=== PATIENT | female | born 1990 | race African-American/Black ===

== ENCOUNTER 2017-09-30 16:56 | Emergency (ER) | payer OTHER ==
[2017-09-30 17:17] VITALS: BP 134/75; PULSE 78; RESP 18; TEMP 98.7; O2SAT 100
--- NOTE | 2017-09-30 17:20 | PD ---
HPI Chief Complaint: Psychiatric Symptoms Time Seen by Provider: 17:11 Travel History International Travel<30 days: No Contact w/Intl Traveler<30days: No History of Present Illness HPI 27-year-old -C[place] female with history of seizure disorder presents the emergency department under the Gomez act for suicidal ideation. Patient reportedly told her girlfriend, and she was going to use a BB gun to have the police shoot her. Police were called, and the patient did in fact tried to pull a BB gun on them prior to them apprehending her. Patient states history of seizure disorder which is supposed to be treated with Dilantin, however she states she stopped the Dilantin months ago, and has not had a seizure for over 2 years. She denies any other medical problems currently. She is not a cooperative patient. She has no known drug allergies [facility] Social History Alcohol Use: Yes Tobacco Use: Yes Substance Use: Yes Allergies-Medications (Allergen,Severity, Reaction): Coded Allergies: No Known Allergies (Unverified , 09/30/17) Review of Systems ROS Limitations: Uncooperative, Poor Historian Except as stated in HPI: all other systems reviewed are Neg General / Constitutional: No: Fever Eyes: No: Visual changes HENT: No: Headaches Cardiovascular: No: Chest Pain or Discomfort Respiratory: No: Shortness of Breath Gastrointestinal: No: Abdominal Pain Genitourinary: No: Dysuria Musculoskeletal: No: Pain Skin: No Rash Neurologic: No: Weakness Psychiatric: No: Depression Endocrine: No: Polydipsia Hematologic/Lymphatic: No: Easy Bruising Physical Exam Exam Limitations: Poor Historian, Uncooperative Narrative GENERAL: Patient appears upset but medically stable. SKIN: Warm and dry. Normal color. Normal turgor. Patient has superficial abrasion to the chin and left shoulder. HEAD: Atraumatic. Normocephalic. Nontender. EYES: Pupils equal and round. No scleral icterus. No injection or drainage. ENT: No nasal bleeding or discharge. Mucous membranes pink and moist. Pharynx is clear. Airways patent. No dental injury. NECK: Trachea midline. No bony tenderness or step-off. Range of motion is full CARDIOVASCULAR: Regular rate and rhythm. RESPIRATORY: No accessory muscle use. Clear to auscultation. Breath sounds equal bilaterally. GASTROINTESTINAL: Abdomen soft, non-tender, nondistended. Hepatic and splenic margins not palpable. MUSCULOSKELETAL: Extremities without clubbing, cyanosis, or edema. No obvious deformities. NEUROLOGICAL: Awake and alert. No obvious cranial nerve deficits. Motor grossly within normal limits. Five out of 5 muscle strength in the arms and legs. Normal speech. Data Data Orders Orders Complete Blood Count With Diff (09/30/17 17:11) Comprehensive Metabolic Panel (09/30/17 17:11) Thyroid Stimulating Hormone (09/30/17 17:11) Urinalysis - C+S If Indicated (09/30/17 17:11) Ed Urine Pregnancytest Poc (09/30/17 17:11) Phenytoin (Dilantin) (09/30/17 17:11) Psych Screen (09/30/17 17:11) Drug Screen, Random Urine (09/30/17 17:11) Alcohol (Ethanol) (09/30/17 17:11) MDM Medical Decision Making Medical Screen Exam Complete: Yes Emergency Medical Condition: Yes Differential Diagnosis Gomez act. Suicidal ideation. Depression. Narrative Course Patient appears emotionally upset but medically stable. Psychiatric labs ordered including CBC, CMP, urinalysis, urine , and Dilantin level. Urine drug screen and alcohol levels ordered as well. Patient is medically clear for psychiatric evaluation. Condition: Stable Francis Srinivasan Sep 30, 2017 17:20
[2017-09-30 17:36] LABS: AUTOMATED NEUTROPHIL # 5.8 TH/MM3 (1.8-7.7); BASOPHIL # 0.1 TH/MM3 (0-0.2); BASOPHIL % 0.9 % (0.0-2.0); EOSINOPHIL # 0.1 TH/MM3 (0-0.4); EOSINOPHIL % 1.2 % (0.0-4.0); HEMATOCRIT 40.7 % (35.0-46.0); HEMOGLOBIN 13.5 GM/DL (11.6-15.3); LYMPH % 18.4 % (9.0-44.0); LYMPHOCYTE # 1.4 TH/MM3 (1.0-4.8); MEAN CELL VOLUME 92.2 FL (80.0-100.0); MEAN CORPUSCULAR HEMOGLOBIN 30.5 PG (27.0-34.0); MEAN CORPUSCULAR HGB CONC 33.1 % (32.0-36.0); MEAN PLATELET VOLUME 9.8 FL (7.0-11.0); MONO % 3.7 % (0.0-8.0); MONOCYTE # 0.3 TH/MM3 (0-0.9); NEUT % 75.8 % (16.0-70.0); PLATELET COUNT 230 TH/MM3 (150-450); RED BLOOD COUNT 4.42 MIL/MM3 (4.00-5.30); RED CELL DISTRIBUTION WIDTH 13.5 % (11.6-17.2); WHITE BLOOD COUNT 7.6 TH/MM3 (4.0-11.0)
[2017-09-30 17:50] LABS: ALBUMIN 4.3 GM/DL (3.4-5.0); ALT (GPT) 14 U/L (10-53); AST (GOT) 8 U/L (15-37); BICARBONATE 21.3 MEQ/L (21.0-32.0); BLOOD UREA NITROGEN 15 MG/DL (7-18); CALCIUM 8.7 MG/DL (8.5-10.1); CHLORIDE 107 MEQ/L (98-107); GLOMERULAR FILTRATION RATE 55 ML/MIN (>89); GLUCOSE,RANDOM 154 MG/DL (74-106); PHENYTOIN (DILANTIN) LESS THAN 0.4 MCG/ML (10.0-20.0); SODIUM (NA) 141 MEQ/L (136-145)
[2017-09-30 17:59] LABS: ALKALINE PHOSPHATASE 59 U/L (45-117); TOTAL BILIRUBIN ADULT 0.4 MG/DL (0.2-1.0); TOTAL PROTEIN 8.4 GM/DL (6.4-8.2)
[2017-09-30 18:29] VITALS: BP 134/75; PULSE 78; RESP 18; TEMP 98.7; O2SAT 100
[2017-09-30 21:52] LABS: BACTERIA, URINE RARE /hpf; BILIRUBIN, URINE NEG (NEG); BLOOD, URINE NEG (NEG); GLUCOSE,URINE NEG (NEG); HYALINE CAST, URINE 8 /lpf (RARE); KETONE, URINE NEG (NEG); MUCUS URINE FEW /lpf (OCC); NITRITE,URINE NEG (NEG); PH, URINE 5.5 (5.0-8.5); SQUAMOUS EPITHELIAL CELL URINE 6 /hpf (0-5); URINE COLOR LIGHT-YELLOW (YELLW/STRAW); URINE LEUKOCYTE ESTERASE NEG (NEG)
[2017-09-30 23:30] VITALS: BP 142/81; PULSE 88; RESP 16; TEMP 99; O2SAT 100
[2017-10-01 06:33] VITALS: BP 114/58; PULSE 96; RESP 18; TEMP 98.8; O2SAT 100
--- NOTE | 2017-10-01 10:45 | PD ---
History of Present Illness Chief Complaint: Psychiatric Symptoms Time Seen by Provider: 10:35 Travel History International Travel<30 Days: No Contact w/Intl Traveler<30days: No Known affected area: No Legal Status Legal Status: Gomez Act Gomez Act Signed By: Devi Espitia Gomez Act Comment: Officer [employer] #[id number] History of Present Illness: History of Present Illness HPI 27-year-old -Welsh, single female in a domestic partner relationship , with significant medical history of seizure disorder who presents the emergency department under the Gomez act initiated for suicidal ideation. The police were called by her . She reported to the police that the patient told her that she was going to use a BB gun to have the police shoot her. Police were called, and the patient did in fact tried to pull a BB gun on them prior to them apprehending her. Patient was monitored in secure environment and presented no suicidality and no behavioral concerns. Electronic medical is reviewed. No previous contact with [facility] psychiatry. Lab work revealed positive toxicology for cannabinoids. Some slight alteration in her AST and ALT. Patient is seen. Patient is alert, oriented, calm and mostly cooperative with the interview. She states " I'm decent and I am not in need of any help." Patient states that she was watching a television show with her partner and that they were arguing and and her called the police. She states that this has happened in the past and that she has been Gomez acted before for similar issues. The patient denies any hallucinations and does not appear to be internally stimulated. There is no evidence of any megan or hypomania. She does not present any significant clinical evidence of any depression. She states that she is not suicidal and not homicidal and "I have no interest in killing myself or anyone else". The patient reports that she needs to be discharged because she needs to get back to work. She denies any previous psychiatric history but does report she has received therapy in the past. Remainder of psychiatric review of systems is negative. Telephone call to Marisel at [phone]. She has no concerns for the patient' s safety. States that the patient is not a danger and that " the smash hand just took it too far". She will pick the patient up when she is discharged. PFSH Past Medical History Hx Anticoagulant Therapy: No Asthma: Yes Autoimmune Disease: No Cardiovascular Problems: No Chemotherapy: No Cerebrovascular Accident: No Diabetes: No Gastrointestinal Disorders: No Genitourinary: No Medical other: No Musculoskeletal: No Neurologic: Yes Psychiatric: No Reproductive: No Respiratory: Yes Integumentary: No Migraines: Yes Seizures: Yes Tetanus Vaccination: Unknown Influenza Vaccination: No ?: Not Past Surgical History Surgical History: No Previous Surgery Hysterectomy: No Psychiatric History Psychiatric History Hx Psychiatric Treatment: Pt denies any psych history or any previous visits. No previous history of suicide attempt. No history of self-injurious behavior. History of Inpatient Treatment: No Guns or firearms in home: No Social History Single, in domestic partner relationship. She is currently employed at a [employer] shop. Hx Alcohol Use: Yes Hx Tobacco Use: No Hx Substance Use: Yes Substance Use Type: Alcohol, Marijuana Hx of Substance Use Treatment: No Family Psychiatric History Negative Allergies-Medications (Allergen,Severity, Reaction): Coded Allergies: No Known Allergies (Unverified , 09/30/17) Reported Meds & Prescriptions Reported Meds & Active Scripts Active Active Prescriptions or Reported Medications Unobtainable Review of Systems Psychiatric: DENIES: Anxiety, Confusion, Mood changes, Depression, Hallucinations, Agitation, Suicidal Ideation, Homicidal Ideation, Delusions Except as stated in HPI: all other systems reviewed are Neg Mental Status Examination Appearance: Appropriate (Wearing hospital attire) Consciousness: Alert Orientation: x4 Motor Activity: Normal gait Speech: Unremarkable Language: Adequate Fund of Knowledge: Adequate Attention and Concentration: Adequate Memory: Unremarkable Mood: Appropriate Affect: Appropriate Thought Process & Associations: Intact, Logical, Goal directed Thought Content: Appropriate Hallucination Type: None Delusion Type: None Suicidal Ideation: No Suicidal Plan: No Suicidal Intention: No Homicidal Ideation: No Homicidal Plan: No Homicidal Intention: No Insight: Fair Judgment: Impulsive MDM Medical Decision Making Medical Record Reviewed: Yes Assessment/Plan History of Present Illness HPI 27-year-old -Welsh, single female in a domestic partner relationship , with significant medical history of seizure disorder, no psychiatric history who presents the emergency department under the Gomez act initiated for suicidal ideation. The police were called by her . She reported to the police that the patient told her that she was going to use a BB gun to have the police shoot her. Police were called, and the patient did in fact tried to pull a BB gun on them prior to them apprehending her. Patient was monitored in secure environment and presented no suicidality and no behavioral concerns. Patient is seen. Collateral is obtained. No evidence of unstable mental illness as defined under the Gomez act. Patient does not meet Gomez act criteria and therefore it will be lifted. Orders Orders Complete Blood Count With Diff (09/30/17 17:11) Comprehensive Metabolic Panel (09/30/17 17:11) Thyroid Stimulating Hormone (09/30/17 17:11) Urinalysis - C+S If Indicated (09/30/17 17:11) Ed Urine Pregnancytest Poc (09/30/17 17:11) Phenytoin (Dilantin) (09/30/17 17:11) Psych Screen (09/30/17 17:11) Drug Screen, Random Urine (09/30/17 17:11) Alcohol (Ethanol) (09/30/17 17:11) Diet Regular Basic (09/30/17 Dinner) Diet Regular Basic (10/01/17 Breakfast) Diet Regular Basic (10/01/17 Lunch) Results Vital Signs Date Time Temp Pulse Resp B/P (MAP) Pulse Ox O2 Delivery O2 Flow Rate FiO2 10/01/17 06:33 98.8 96 18 114/58 (76) 100 09/30/17 23:30 99.0 88 16 142/81 (101) 100 Room Air 09/30/17 18:29 98.7 78 18 134/75 (94) 100 09/30/17 17:17 98.7 78 18 134/75 (94) 100 Laboratory Tests Test 09/30/17 17:23 09/30/17 21:19 White Blood Count 7.6 Red Blood Count 4.42 Hemoglobin 13.5 Hematocrit 40.7 Mean Corpuscular Volume 92.2 Mean Corpuscular Hemoglobin 30.5 Mean Corpuscular Hemoglobin Concent 33.1 Red Cell Distribution Width 13.5 Platelet Count 230 Mean Platelet Volume 9.8 Neutrophils (%) (Auto) 75.8 Lymphocytes (%) (Auto) 18.4 Monocytes (%) (Auto) 3.7 Eosinophils (%) (Auto) 1.2 Basophils (%) (Auto) 0.9 Neutrophils # (Auto) 5.8 Lymphocytes # (Auto) 1.4 Monocytes # (Auto) 0.3 Eosinophils # (Auto) 0.1 Basophils # (Auto) 0.1 CBC Comment DIFF FINAL Differential Comment Blood Urea Nitrogen 15 Creatinine 1.40 Random Glucose 154 Total Protein 8.4 Albumin 4.3 Calcium Level 8.7 Alkaline Phosphatase 59 Aspartate Amino Transf (AST/SGOT) 8 Alanine Aminotransferase (ALT/SGPT) 14 Total Bilirubin 0.4 Sodium Level 141 Potassium Level 3.0 Chloride Level 107 Carbon Dioxide Level 21.3 Anion Gap 13 Estimat Glomerular Filtration Rate 55 Thyroid Stimulating Hormone 3rd Gen 0.896 Phenytoin (Dilantin) Level LESS THAN 0.4 Ethyl Alcohol Level LESS THAN 3 Urine Color LIGHT-YELLOW Urine Turbidity CLEAR Urine pH 5.5 Urine Specific [place] 1.007 Urine Protein TRACE Urine Glucose (UA) NEG Urine Ketones NEG Urine Occult Blood NEG Urine Nitrite NEG Urine Bilirubin NEG Urine Urobilinogen LESS THAN 2.0 Urine Leukocyte Esterase NEG Urine RBC 1 Urine WBC 3 Urine Squamous Epithelial Cells 6 Urine Bacteria RARE Urine Hyaline Casts 8 Urine Mucus FEW Microscopic Urinalysis Comment CULT NOT INDICATED Urine Opiates Screen NEG Urine Barbiturates Screen NEG Urine Amphetamines Screen NEG Urine Benzodiazepines Screen NEG Urine Cocaine Screen NEG Urine Cannabinoids Screen POS Diagnosis Primary Impression: Adjustment disorder Psychiatrically Cleared: Yes Med/ Other Pt Specific Info: No Meds Exist/No RX given Prescriptions Unable to Obtain Active Prescriptions or Reported Meds Disposition: 01 DISCHARGE HOME Condition: Stable Problem Qualifiers Primary Impression: Adjustment disorder Qualified Codes: F43.25 - Adjustment disorder with mixed disturbance of emotions and conduct Francie Ramos [facility] Oct 01, 2017 10:45
--- NOTE | 2017-10-01 11:00 | PD ---
Physical Exam Date Seen by Provider: Oct 01, 2017 Time Seen by Provider: 10:57 Narrative 27-year-old -Palest[place] female previously medically cleared under the Gomez act for psychiatric evaluation. Patient has been cleared psychiatrically for discharge. Patient remains medically stable for discharge at this time. Patient has history of seizures, but is refusing to take any medication for it at this time, as she has not had a seizure in many years. Follow-up will be based on psychiatric note. Data Data Last Documented VS Vital Signs Date Time Temp Pulse Resp B/P (MAP) Pulse Ox O2 Delivery O2 Flow Rate FiO2 10/01/17 06:33 98.8 96 18 114/58 (76) 100 09/30/17 23:30 Room Air Orders Orders Complete Blood Count With Diff (09/30/17 17:11) Comprehensive Metabolic Panel (09/30/17 17:11) Thyroid Stimulating Hormone (09/30/17 17:11) Urinalysis - C+S If Indicated (09/30/17 17:11) Ed Urine Pregnancytest Poc (09/30/17 17:11) Phenytoin (Dilantin) (09/30/17 17:11) Psych Screen (09/30/17 17:11) Drug Screen, Random Urine (09/30/17 17:11) Alcohol (Ethanol) (09/30/17 17:11) Diet Regular Basic (09/30/17 Dinner) Diet Regular Basic (10/01/17 Breakfast) Diet Regular Basic (10/01/17 Lunch) Labs Laboratory Tests Test 09/30/17 17:23 09/30/17 21:19 White Blood Count 7.6 TH/MM3 Red Blood Count 4.42 MIL/MM3 Hemoglobin 13.5 GM/DL Hematocrit 40.7 % Mean Corpuscular Volume 92.2 FL Mean Corpuscular Hemoglobin 30.5 PG Mean Corpuscular Hemoglobin Concent 33.1 % Red Cell Distribution Width 13.5 % Platelet Count 230 TH/MM3 Mean Platelet Volume 9.8 FL Neutrophils (%) (Auto) 75.8 % Lymphocytes (%) (Auto) 18.4 % Monocytes (%) (Auto) 3.7 % Eosinophils (%) (Auto) 1.2 % Basophils (%) (Auto) 0.9 % Neutrophils # (Auto) 5.8 TH/MM3 Lymphocytes # (Auto) 1.4 TH/MM3 Monocytes # (Auto) 0.3 TH/MM3 Eosinophils # (Auto) 0.1 TH/MM3 Basophils # (Auto) 0.1 TH/MM3 CBC Comment DIFF FINAL Differential Comment Blood Urea Nitrogen 15 MG/DL Creatinine 1.40 MG/DL Random Glucose 154 MG/DL Total Protein 8.4 GM/DL Albumin 4.3 GM/DL Calcium Level 8.7 MG/DL Alkaline Phosphatase 59 U/L Aspartate Amino Transf (AST/SGOT) 8 U/L Alanine Aminotransferase (ALT/SGPT) 14 U/L Total Bilirubin 0.4 MG/DL Sodium Level 141 MEQ/L Potassium Level 3.0 MEQ/L Chloride Level 107 MEQ/L Carbon Dioxide Level 21.3 MEQ/L Anion Gap 13 MEQ/L Estimat Glomerular Filtration Rate 55 ML/MIN Thyroid Stimulating Hormone 3rd Gen 0.896 uIU/ML Phenytoin (Dilantin) Level LESS THAN 0.4 MCG/ML Ethyl Alcohol Level LESS THAN 3 MG/DL Urine Color LIGHT-YELLOW Urine Turbidity CLEAR Urine pH 5.5 Urine Specific [place] 1.007 Urine Protein TRACE mg/dL Urine Glucose (UA) NEG mg/dL Urine Ketones NEG mg/dL Urine Occult Blood NEG Urine Nitrite NEG Urine Bilirubin NEG Urine Urobilinogen LESS THAN 2.0 MG/DL Urine Leukocyte Esterase NEG Urine RBC 1 /hpf Urine WBC 3 /hpf Urine Squamous Epithelial Cells 6 /hpf Urine Bacteria RARE /hpf Urine Hyaline Casts 8 /lpf Urine Mucus FEW /lpf Microscopic Urinalysis Comment CULT NOT INDICATED Urine Opiates Screen NEG Urine Barbiturates Screen NEG Urine Amphetamines Screen NEG Urine Benzodiazepines Screen NEG Urine Cocaine Screen NEG Urine Cannabinoids Screen POS MDM Medical Record Reviewed: Yes Supervised Visit with NANCY: Yes Narrative Course 27-year-old -[place] female previously medically cleared under the Gomez act for psychiatric evaluation. Patient has been cleared psychiatrically for discharge. Patient remains medically stable for discharge at this time. Patient has history of seizures, but is refusing to take any medication for it at this time, as she has not had a seizure in many years. Follow-up will be based on psychiatric note. Diagnosis Primary Impression: Adjustment disorder Qualified Codes: F43.20 - Adjustment disorder, unspecified Scripts Unable to Obtain Active Prescriptions or Reported Meds Disposition: DISCHARGE HOME Condition: Stable Francis Srinivasan Oct 01, 2017 11:00
== END 2017-10-01 11:06 | disposition home or self-care (01) ==
LOC: NEDAMB 16:56 → NEPJ 10-01 11:06
DX: F43.25 Adjustment disorder with mixed disturbance of emotions and conduct (principal); F12.90 Cannabis use, unspecified, uncomplicated; G40.909 Epilepsy, unspecified, not intractable, without status epilepticus; Z72.0 Tobacco use; Z79.899 Other long term (current) drug therapy
CPT/HCPCS: 80053; 80185; 80307; 81001; 84443; 84703; 85025; 99284